=== PATIENT | female | born 1975 | race Caucasian/White ===

== ENCOUNTER 2024-07-21 21:56 | Emergency (ER) | payer OTHER ==
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
[2024-07-22 00:19] VITALS: TEMP 97.6; O2SAT 100
[2024-07-22 00:20] VITALS: BP 168/109
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
--- NOTE | 2024-07-23 14:40 | RAD REPORT ---
EXAM DESCRIPTION: RAD - Hand Right 3 View - 07/21/2024 10:49 pm CLINICAL HISTORY: Female, 49 years old, PAIN TECHNIQUE: 3 views COMPARISON: 03/17/2024 FINDINGS: No acute fracture or dislocation. Normal osseous mineralization. No significant degenerati ve change. Unremarkable soft tissues. IMPRESSION: No acute osseous finding of the right hand. Electronically signed by: Louis Garcia MD 07/21/2024 11:17 PM CDT RP Due to temporary technical issues with the PACS/Fluency reporting system, reports are being signed by the in house radiologist without review as a courtesy to ensure prompt reporting. The interpreting r adiologist is fully responsible for the content of the report.
== END 2024-07-22 00:08 | disposition home or self-care (01) ==
LOC: ER 21:56
DX: S32.019A Unspecified fracture of first lumbar vertebra, initial encounter for closed fracture (principal); M79.641 Pain in right hand; V49.9XXA Car occupant (driver) (passenger) injured in unspecified traffic accident, initial encounter
CPT/HCPCS: 70450; 71250; 72125; 99284